=== PATIENT | male | born 1955 | race Caucasian/White ===

== ENCOUNTER 2017-02-03 10:00 | Observation (INO) | payer OTHER ==
--- NOTE | ~2017-02-03 | OP ---
Record Of Operation [facility] [address] [place]. [address] NAME: LIA IGLESIAS : 55 STATUS : ADM Kassie PAT#: [id number] AGE: 61 ADM/REG DATE : 02/03/17 MR#: [id number] REPORT SERV DATE: 02/03/17 DICTATED BY: LOUIS DISLA DATE: 02/03/17 REPORT STATUS : Draft TRANSCRIBED BY: IKE DATE: 02/03/17 DATE OF PROCEDURE: 02/03/2017 CARDIOVERSION REPORT PRIMARY SUPERVISOR REFINING: Max Richmond M.D., Ph.D, F.A.C.C. INDICATION: 61-year-old male with a known history of paroxysmal atrial fibrillation. He has been on therapeutic anticoagulation with warfarin for two years. Recent INRs over the past six weeks have all been therapeutic. INR, today is 2.0. No MIRANDA performed. Informed consent was obtained, signed, and on the chart prior to proceeding. A time-out was performed and sedation was per Anesthesia. CARDIOVERSION: With the pads in the anterior-posterior position, a single synchronized 200 joules biphasic energy shock was delivered with successful cardioversion to sinus bradycardia at 50-55 beats per minute. There was an initial sinus pause for approximately 3 seconds with a brief junctional escape rhythm at 40 beats per minute prior to recurrence of sinus bradycardia as previously outlined. COMPLICATIONS: None. CONCLUSION: Successful cardioversion to sinus rhythm. BO/IKE Louis Disla M.D. / [id number] CC: Abby Monroe NP
--- NOTE | ~2017-02-03 | HP ---
History And Physical [id number] [facility] [place]. [address] NAME: LIA IGLESIAS : 55 STATUS : ADM Kassie PAT#: [id number] AGE: 61 ADM/REG DATE : 02/03/17 MR#: [id number] REPORT SERV DATE: 02/03/17 DICTATED BY: ABBY MONROE DATE: 02/03/17 REPORT STATUS : Draft TRANSCRIBED BY: MODCarlie DATE: 02/03/17 DATE OF ADMISSION: 02/03/2017 PRIMARY MACHINE CLOTH TRIMMER: Max Richmond M.D., Ph.D, F.A.C.C. CHIEF COMPLAINT: This is a very pleasant 61-year-old male with history of paroxysmal atrial fibrillation as well as nonobstructive coronary artery disease, who is on chronic anticoagulation with Coumadin, who reports onset of palpitations since Friday morning around 0100 hours. He states it woke him out of his sleep. He felt his heart was "out of rhythm'. He was accompanied with some mild "chest tightness", but no significant shortness of breath or dizziness. He states that, all day on Friday, he felt very tired, and when these symptoms continued, [facility], but they were unable to overcome into see Dr. Richmond, since he was on vacation, and they recommended he come to the emergency department. He was presented to the emergency department with atrial fibrillation and the rate of 110s to 120s, was started on IV Cardizem. He is currently on 10 mg/hour of IV Cardizem with his heart rate in the 70s to 80s, and he feels more comfortable. The patient states a most recent episode of atrial fibrillation to his knowledge of approximately three years ago. He is compliant with his warfarin and gets INRs checked with his primary care physician, and he states, he has had no recent dose adjustment, and his INRs have been therapeutic between 2 to 3 for several months now. The patient has a history of 70% lesion in the distal LAD on arteriogram in 2003, which has been followed by Dr. Richmond. He denies any other recent chest pain on exertion or at rest. Denies any recent fever, cough, or chills. Denies any significant shortness of breath, orthopnea, PND, or lower extremity edema. He is compliant with CPAP therapy for his obstructive sleep apnea. PAST MEDICAL HISTORY: 1. Paroxysmal atrial fibrillation, on chronic anticoagulation. 2. History of mild bradycardia. 3. Coronary artery disease with cardiac catheterization in 2003, showing distal 70% stenosis to the ramus intermedius. Stress echocardiogram in 06/2015 was an indeterminate stress test secondary to some ischemic EKG changes during Vineet stage 4 protocol. There was no chest pain. 4. Hypertension. 5. Hyperlipidemia. 6. Obstructive sleep apnea, compliant with CPAP therapy. 7. History of vasovagal syncope in 2010. 8. Type 2 diabetes mellitus. OTHER SURGICAL HISTORY: Right knee scope and left rotator cuff repair. MEDICATIONS: Norvasc 10 mg daily, aspirin 81 daily, Tenormin 25 at bedtime, Lipitor 10 at bedtime, flecainide 75 mg p.o. b.i.d., Victoza 1.8 mg subcu at bedtime, lisinopril 40 at bedtime, metformin 1000 b.i.d., potassium chloride 20 mEq b.i.d., Aldactone 25 daily, testosterone 300 IM every 14 days, Coumadin 10 mg on Friday, at hour of sleep and History And Physical [address] [address] NAME: LIA IGLESIAS : 55 STATUS : ADM Kassie PAT#: [id number] AGE: 61 ADM/REG DATE : 02/03/17 MR#: [id number] REPORT SERV DATE: 02/03/17 DICTATED BY: ABBY MONROE DATE: 02/03/17 REPORT STATUS : Draft TRANSCRIBED BY: IKE DATE: 02/03/17 7.5 on the other days. ALLERGIES: NO KNOWN DRUG ALLERGIES. SOCIAL HISTORY: The patient is , at bedside. Denies history of smoking. Rare alcohol use. Drinks a couple cups of coffee a day. 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 FAMILY HISTORY: Father at age 76 from heart failure with a history of coronary artery disease. REVIEW OF SYSTEMS: The patient also states there was some confusion through pharmacy regarding the flecainide dose. He has actually been taking 75 mg b.i.d. instead of 100 mg b.i.d. Apparently, the pharmacy filled for the wrong strength. All other review of systems negative except as indicated above. PHYSICAL EXAMINATION: VITAL SIGNS: Blood pressure 149/90, heart rate 109, temperature 97.7, pulse oximetry 97% on room air, heart rate now down in the 70s to 80s, atrial fibrillation on the monitor. GENERAL: Well developed, well nourished, in no acute distress HEENT: Anicteric. Normal EOM. Head normocephalic. PERRLA, no xanthelasma. NECK: Supple. No JVD. Carotids normal without bruits. LUNGS: Clear to auscultation bilaterally anterior and posterior. Respirations even and unlabored. CARDIAC: S1, S2. Irregularly irregular rate and rhythm. There are no murmurs, gallops, or rubs appreciated. PMI nondisplaced. No chest wall tenderness. ABDOMEN: Normal bowel sounds. Soft and nontender to palpation. No masses or organomegaly. EXTREMITIES: No peripheral edema. DP/PT and radial pulses palpable bilaterally. No clubbing or cyanosis. SKIN: Warm and dry. Normal turgor. No pallor or cyanosis. MUSCULOSKELETAL: Moving all extremities x4. Normal muscle strength. NEURO/PSYCH: Alert and oriented with appropriate affect. LABORATORY DATA: Sodium 140, potassium 4.2, BUN 20, creatinine 1.1, magnesium 1.8. White blood count 6.7, hemoglobin 18.3, hematocrit 51.1. INR 2.0. Troponin less than 0.02. Chest x-ray shows no acute cardiopulmonary processes. EKG interpreted by myself, acute atrial fibrillation with a rate of 127 beats per minute with nonspecific ST depression in the lateral leads. ASSESSMENT/PLAN: 1. Paroxysmal atrial fibrillation in this 61-year-old male with last known episode of atrial fibrillation around three years ago. He is now rate controlled on IV Cardizem. I have checked with Dr. Leblanc's office and I have received records that his INR over the last several months had been therapeutic between 2 to 3. The patient has also been seen by Dr. Manley with Electrophysiology and been planned to have the patient cardioverted today. We will then increase his flecainide back to 100 mg b.i.d. and History And Physical [address] [address] NAME: LIA IGLESIAS : 55 STATUS : ADM Kassie PAT#: [id number] AGE: 61 ADM/REG DATE : 02/03/17 MR#: [id number] REPORT SERV DATE: 02/03/17 DICTATED BY: ABBY MONROE DATE: 02/03/17 REPORT STATUS : Draft TRANSCRIBED BY: IKE DATE: 02/03/[address] Richmond, in the next three to four weeks. The patient is agreeable with this plan. 2. Chest tightness along with the atrial fibrillation, recurrent. The patient states, no other recent chest pain at rest or with exertion recently. He does have a history of some coronary artery disease back in 2003 on cardiac catheterization to the small branch of the LAD. Continue current medical therapy. We will plan to check a second troponin prior to cardioversion to further rule out any current ischemia. 3. Obstructive sleep apnea, compliant with CPAP therapy. 4. Type 2 diabetes mellitus, glucose appears controlled. ROSELINE/IKE Abby Monroe NP / [id number] CC: EDMUND Mcguire M.D. Max Richmond M.D., Ph.D, F.A.C.C.
[2017-02-03 09:43] LABS: BASOPHILS 0.2 %; BASOPHILS ABSOLUTE 0.01 10/3/uL (0.0-0.16); EOSINOPHILS 0.8 %; EOSINOPHILS ABSOLUTE 0.05 10/3/uL (0.0-0.53); ER CBC TAT 0 Hrs 03 Mins; HEMATOCRIT 51.1 % (40.0-51.0); HEMOGLOBIN 18.3 g/dL (13.6-17.8); IMMATURE GRANULOCYTES 0.5 %; IMMATURE GRANULOCYTES ABSOLUTE 0.03 10/3/uL (0.0-0.11); LYMPHOCYTES ABSOLUTE 0.93 10/3/uL (0.67-4.30); MEAN CORPUS HGB CONC 35.8 g/dL (32.0-36.0); MEAN CORPUSCULAR HEMOGLOB 31.6 pg (26.0-34.0); MEAN CORPUSCULAR VOLUME 88.3 fL (80-100); MEAN PLATELET VOLUME 9.7 fL (9.2-13.0); MONOCYTES 7.7 %; MONOCYTES ABSOLUTE 0.51 10/3/uL (0.21-1.20); NEUTROPHILS 76.8 %; NEUTROPHILS ABSOLUTE 5.13 10/3/uL (2.02-8.40); PLATELET COUNT 141 10/3/uL (150-400); RBC DISTRIBUTION WIDTH 13.6 % (12.0-16.0); RED CELL COUNT 5.79 10/6/uL (4.7-6.1); WHITE BLOOD CELLS 6.7 10/3/uL (4.5-10.5)
[2017-02-03 09:44] LABS: MANUAL DIFF NO %
[2017-02-03 09:52] LABS: PROTIME (NOT ORD) 22.1 SEC (12.0-14.5)
[~2017-02-03 10:00] MED LIST: ASAB PO; ATEN25 PO; COUMADIN10 MG PO; COUMADIN7.5 MG PO; KLOR-CON M2020 MEQ PO; LIPITOR10 PO; NORV10 PO; PRIN10 PO; SPIRO25 PO; TAMBOCOR150 MG PO; VICTOZA18 MG/3 ML SC
[2017-02-03 10:01] LABS: CALCIUM, SERUM 9.7 MG/DL (8.5-10.4); CHEST PAIN PROFILE TAT 0 Hrs 21 Mins; CHLORIDE, SERUM 105 MMOL/L (96-112); CREATININE 1.14 MG/DL (0.70-1.30); GFR AFRICAN AMERICAN 80 ML/MIN (>=60); GFR NON AFRICAN AMERICAN 69 ML/MIN (>=60); GLUCOSE, SERUM 201 MG/DL (60-99); POTASSIUM, SERUM 4.2 MMOL/L (3.5-5.3); SODIUM, SERUM 140 MMOL/L (135-148); TROPONIN I <0.02 NG/ML (<0.05)
[2017-02-03] MEDS ORDERED: TESTOST CYP100 MG/ML IM (10:01)
[2017-02-03] MEDS ORDERED: COUMADIN10 MG PO (10:01)
[2017-02-03] MEDS ORDERED: COUMADIN7.5 MG PO (10:01)
[2017-02-03 10:02] LABS: BUN (BLOOD UREA NITROGEN) 20 MG/DL (6-23); CO2 (CARBON DIOXIDE) 24 MMOL/L (24-34)
[2017-02-03] MEDS ORDERED: LIPITOR10 PO (10:02)
[2017-02-03] MEDS ORDERED: LISINOPRIL40 MG PO (10:02)
[2017-02-03] MEDS ORDERED: SPIRO25 PO (10:03)
[2017-02-03] MEDS ORDERED: NORV10 PO (10:04)
[2017-02-03] MEDS ORDERED: GLUCOPHAGE1000 MG PO (10:04)
[2017-02-03] MEDS ORDERED: FLECAINIDE100 MG PO (10:05)
[2017-02-03] MEDS ORDERED: ASAB PO (10:06)
[2017-02-03] MEDS ORDERED: KDUR20 PO (10:06)
[2017-02-03 11:50] LABS: ULTRASENSITIVE TSH 0.963 MCIU/ML (0.358-3.740)
[2017-02-03 14:11] LABS: FREE T4 1.22 NG/DL (0.76-1.46); ULTRASENSITIVE TSH 1.01 MCIU/ML (0.358-3.740)
== END 2017-02-03 17:57 | disposition home or self-care (01) ==
LOC: ER 10:00 → CDU1 12:19 → SSU1 16:00
PROVIDERS: Hospitalist; Nurse Practitioner
DX: I48.0 Paroxysmal atrial fibrillation (principal); I25.10 Atherosclerotic heart disease of native coronary artery without angina pectoris; E78.5 Hyperlipidemia, unspecified; G47.33 Obstructive sleep apnea (adult) (pediatric); I10 Essential (primary) hypertension; E11.9 Type 2 diabetes mellitus without complications; Z99.89 Dependence on other enabling machines and devices
CPT/HCPCS: 71010; 80048; 83735; 83880; 84439; 84443; 84484; 85025; 85610; 85730; 92960; 93005; 96365; 96366; 99291; A9270-GY; G0378

== ENCOUNTER 2017-02-13 07:38 | Observation (INO) | payer OTHER ==
--- NOTE | ~2017-02-13 | HP ---
History And Physical [id number] [facility] [place]. [address] NAME: LIA IGLESIAS : 55 STATUS : ADM Kassie PAT#: [id number] AGE: 61 ADM/REG DATE : 02/13/17 MR#: [id number] REPORT SERV DATE: 02/13/17 DICTATED BY: SOL MICHAUD DATE: 02/13/17 REPORT STATUS : Draft TRANSCRIBED BY: MODCarlie DATE: 02/13/17 DATE OF ADMISSION: 02/13/2017 EXERCISE INSTRUCTOR: Max Richmond M.D., Ph.D, F.A.C.C. CHIEF COMPLAINT: Palpitations. HISTORY OF PRESENT ILLNESS: A very pleasant 61-year-old white gentleman with identified insignificant CAD by catheterization in 2003 not amenable to PCI and history of PAF. The patient states that he was working out of town in [place], [place] yesterday; and at 0030 this morning, he woke up to use the restroom; and while up to the bathroom, he also became aware of the palpitations. He states he has frequent urination. Secondary to being in atrial fibrillation, he called the [facility]. He drove himself home and came to the emergency room for further evaluation and treatment. He reports some heightened anxiety with the atrial fibrillation. Denies shortness of breath, nausea, diaphoresis, dizziness, or belching. He does report minimal chest pressure in the middle of the sternum, rated a 3/10 at its most intense. At time of interview in the [facility], he rates it a 1/10. The patient denies any personal history of myocardial infarction, stroke, DVT, or pulmonary embolus. The patient denies any recent fever or chills, reoccurrence of palpitations early this morning, no syncopal episodes. Denies PND or orthopnea. Of note, the patient underwent a DCCV on 02/03/2017. He was successfully cardioverted back to sinus rhythm at that time. He returned for another event recurrence of atrial fibrillation. The patient reports that he previously was dispensed flecainide 150 mg twice daily, and for several weeks cutting those in half taking 75 twice daily prior to his most recent cardioversion. He has recently resumed 100 mg of flecainide twice daily over the past week. The patient did receive a testosterone injection administered by his this past Friday. PAST MEDICAL HISTORY: 1. Insignificant CAD with known distal LAD lesion not amenable to PCI in 2003. 2. PAF with recent cardioversion, 02/03/2017. 3. Hypertension. 4. Dyslipidemia. 5. Sleep apnea compliant with CPAP. 6. History of bradycardia with mild SSS per office note. 7. Positive family history for early CAD. SURGICAL HISTORY: Right knee repair and left rotator cuff. SOCIAL HISTORY: He is , with two children. He works for [employer]. 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 He walks 4-5 miles most days without incident. Denies tobacco or illicits. Rarely consumes alcohol. History And Physical [address] [address] NAME: LIA IGLESIAS : 55 STATUS : ADM Kassie PAT#: [id number] AGE: 61 ADM/REG DATE : 02/13/17 MR#: [id number] REPORT SERV DATE: 02/13/17 DICTATED BY: SOL MICHAUD DATE: 02/13/17 REPORT STATUS : Draft TRANSCRIBED BY: IKE DATE: 02/13/17 FAMILY HISTORY: Father at the age of 66 of a heart attack with a history of CABG. He is one of five siblings, none of whom have CAD or atrial fibrillation. REVIEW OF SYSTEMS: A 14-point review of systems performed, significant for HPI. No other contributory diagnoses identified. ALLERGIES: NO KNOWN DRUG ALLERGIES. HOME MEDICATIONS: Home medicines: Norvasc 10 mg daily, aspirin 81 mg daily, Tenormin 25 mg nightly, Lipitor 10 mg nightly, flecainide 100 mg twice daily, Victoza pen 1.8 mg subcu at bedtime, lisinopril 40 mg nightly, metformin 1000 mg twice daily, potassium 20 mEq twice daily, Aldactone 25 mg daily, testosterone injection 300 mg twice weekly now every two weeks. Warfarin 10 mg Friday, and 7.5 mg Friday, Friday, Friday, Friday, and Friday. CoQ10 one capsule daily. PHYSICAL EXAMINATION: BLOOD PRESSURE: 137/80. HEART RATE: 103, irregularly irregular. RESPIRATORY RATE: 18. TEMPERATURE: Unavailable. GENERAL: Cooperative, in no apparent distress. HEENT: Pupils 2 mm, sclera nonicteric. Nares patent. Moist mucous membranes. No xanthelasma. NECK: Trachea midline, no thyromegaly. No JVD. No bruits. LYMPH: No cervical lymphadenopathy. No supraclavicular lymphadenopathy. RESPIRATORY: Unlabored respirations. Breath sounds clear bilaterally to posterior auscultation. No wheezes or rhonchi. CARDIOVASCULAR: Irregularly irregular rate with a variable S1 and S2. ABDOMEN: Soft, nontender, nondistended, normal bowel sounds auscultated throughout. No organomegaly. SKIN: Warm, dry extremities. No pallor, or cyanosis. PSYCHIATRIC: Appropriate affect. Alert, oriented x3. LABORATORY DATA: Troponin less than 0.02, potassium 4.1, BUN 16, creatinine 1.21, glucose 146, magnesium 2.0. WBC 6.2, hemoglobin 19.1, hematocrit 52.7, platelet count 164,000, PT 22.2 and INR 2.0. EKG atrial fibrillation with RVR, and controlled rate. Echo 2010: EF 50-55%. Normal study with normal left atrial size. Stress echo 2014: No chest pain with ischemic EKG changes during Vineet 4 protocol. ASSESSMENT AND PLAN: 1. Atrial fibrillation, rate well controlled, not on Cardizem drip. The patient will be held n.p.o. for DCCV at 1500 today. The patient to be seen by Dr. Barrett, on rounds. The patient will be discharged home if successfully cardioverted. To continue flecainide 100 twice daily and current warfarin dose. The patient has a followup with Dr. Lbelanc on Friday for INR check at that time and followup with Dr. Richmond on 03/28/2017 as scheduled. History And Physical [address] [place]. [address] NAME: LIA IGLESIAS : 55 STATUS : ADM Kassie PAT#: [id number] AGE: 61 ADM/REG DATE : 02/13/17 MR#: [id number] REPORT SERV DATE: 02/13/17 DICTATED BY: SOL MICHAUD DATE: 02/13/17 REPORT STATUS : Draft TRANSCRIBED BY: MODL DATE: 02/13/17 2. Insignificant coronary artery disease. Continue home medications. 3. Hypertension. Continue home medications. 4. Dyslipidemia, continue statin. JERARDO/MODL SEAN Luu, [employer]ER-BC / [id number] CC: SEAN Luu, [employer] OR [employer]ER-BC Pushpa Leblanc M.D.
--- NOTE | ~2017-02-13 | OP ---
Record Of Operation [facility] [address] [place]. [address] NAME: LIA IGLESIAS : 55 STATUS : ADM Kassie PAT#: [id number] AGE: 61 ADM/REG DATE : 02/13/17 MR#: [id number] REPORT SERV DATE: 02/13/17 DICTATED BY: PJ BLANCO DATE: 02/13/17 REPORT STATUS : Draft TRANSCRIBED BY: MODL DATE: 02/13/17 DATE OF PROCEDURE: 02/13/2017 PROCEDURE TYPE: Elective cardioversion. PROCEDURE INDICATION: Atrial fibrillation. DESCRIPTION: All questions were answered and informed consent was obtained. Anesthesia sedated the patient. Upon successful sedation, the patient was shocked with 200 joules synchronized x1. The patient successfully converted to sinus rhythm without any complications. DIANA/IKE Pj Blanco MD / [id number] CC: Shobha Hernandez, SEAN, RAYON CONER-BC
[2017-02-13 07:02] LABS: BASOPHILS 0.3 %; BASOPHILS ABSOLUTE 0.02 10/3/uL (0.0-0.16); EOSINOPHILS 0.8 %; EOSINOPHILS ABSOLUTE 0.05 10/3/uL (0.0-0.53); ER CBC TAT 0 Hrs 00 Mins; HEMATOCRIT 52.7 % (40.0-51.0); HEMOGLOBIN 19.1 g/dL (13.6-17.8); IMMATURE GRANULOCYTES 1.1 %; IMMATURE GRANULOCYTES ABSOLUTE 0.07 10/3/uL (0.0-0.11); LYMPHOCYTES 22.1 %; LYMPHOCYTES ABSOLUTE 1.36 10/3/uL (0.67-4.30); MEAN CORPUS HGB CONC 36.2 g/dL (32.0-36.0); MEAN CORPUSCULAR HEMOGLOB 32.1 pg (26.0-34.0); MEAN CORPUSCULAR VOLUME 88.6 fL (80-100); MEAN PLATELET VOLUME 9.6 fL (9.2-13.0); MONOCYTES 9.6 %; MONOCYTES ABSOLUTE 0.59 10/3/uL (0.21-1.20); NEUTROPHILS 66.1 %; NEUTROPHILS ABSOLUTE 4.07 10/3/uL (2.02-8.40); PLATELET COUNT 164 10/3/uL (150-400); RBC DISTRIBUTION WIDTH 13.3 % (12.0-16.0); RED CELL COUNT 5.95 10/6/uL (4.7-6.1); WHITE BLOOD CELLS 6.2 10/3/uL (4.5-10.5)
[2017-02-13 07:03] LABS: MANUAL DIFF NO %
[2017-02-13 07:10] LABS: PROTIME (NOT ORD) 22.2 SEC (12.0-14.5)
[2017-02-13 07:19] LABS: BUN (BLOOD UREA NITROGEN) 16 MG/DL (6-23); CALCIUM, SERUM 9.9 MG/DL (8.5-10.4); CHEST PAIN PROFILE TAT 0 Hrs 20 Mins; CHLORIDE, SERUM 103 MMOL/L (96-112); CO2 (CARBON DIOXIDE) 32 MMOL/L (24-34); CREATININE 1.21 MG/DL (0.70-1.30); GFR AFRICAN AMERICAN 74 ML/MIN (>=60); GFR NON AFRICAN AMERICAN 64 ML/MIN (>=60); GLUCOSE, SERUM 146 MG/DL (60-99); POTASSIUM, SERUM 4.1 MMOL/L (3.5-5.3); SODIUM, SERUM 140 MMOL/L (135-148); TROPONIN I <0.02 NG/ML (<0.05)
[~2017-02-13 07:38] MED LIST changes: +FLECAINIDE100 MG PO; +GLUCOPHAGE1000 MG PO; +KDUR20 PO; +LISINOPRIL40 MG PO; +TESTOST CYP100 MG/ML IM
[2017-02-13 13:05] LABS: PROTIME (NOT ORD) 22.9 SEC (12.0-14.5)
[2017-02-13 13:20] LABS: ALKALINE PHOSPHATASE 43 U/L (45-117); DIRECT BILIRUBIN 0.2 MG/DL (0.0-0.4); FREE T4 1.24 NG/DL (0.76-1.46); INDIRECT BILIRUBIN(NOT ORDER) 0.7 MG/DL (0.1-0.9); SGOT(AST) 22 U/L (5-40); SGPT(ALT) 34 U/L (5-65); TOTAL BILIRUBIN 0.9 MG/DL (0-1.2); TOTAL PROTEIN 7.5 G/DL (6.0-8.5); TROPONIN I <0.02 NG/ML (<0.05)
[2017-02-13] MEDS ORDERED: CO Q-10100 MG PO (15:20)
== END 2017-02-13 15:32 | disposition home or self-care (01) ==
LOC: ER 07:38 → CDU1 09:09 → CDU2 10:07
PROVIDERS: Clinical Nurse Specialist; Nurse Practitioner
PROC: 5A2204Z Restoration of Cardiac Rhythm, Single (ICD-10-PCS; principal; 2017-02-13)
DX: I48.91 Unspecified atrial fibrillation (principal); I25.10 Atherosclerotic heart disease of native coronary artery without angina pectoris; I10 Essential (primary) hypertension; E78.5 Hyperlipidemia, unspecified; E78.00 Pure hypercholesterolemia, unspecified; G47.33 Obstructive sleep apnea (adult) (pediatric); Z99.81 Dependence on supplemental oxygen; Z98.890 Other specified postprocedural states; Z79.82 Long term (current) use of aspirin; Z79.899 Other long term (current) drug therapy; Z79.01 Long term (current) use of anticoagulants; Z86.010 Personal history of colon polyps
CPT/HCPCS: 71010; 80048; 80076; 83735; 83880; 84439; 84443; 84484; 85025; 85610; 85730; 92960; 93005; 99285; A9270-GY; G0378